=== PATIENT | female | born 1995 | race Hispanic/Latino ===

== ENCOUNTER 2018-08-24 20:06 | Emergency (ER) | payer SELFPAY ==
[2018-08-24 20:40] LABS: Absolute Lymphocytes (CBC) 2.6 K/uL (0.7-4.9); Basophils % 0.5 % (0-1.3); Eosinophils % 1.5 % (0-4.4); Hematocrit 41.3 % (36.0-45.0); Lymphocytes % 29.1 % (15.3-44.8); Monocytes % 8.2 % (3.3-12.3); RBC Red Blood Cell Count 4.64 M/uL (3.86-4.86)
[2018-08-24] MEDS ORDERED: NA CHLORIDE 0.9% 1,000 ML ONE (20:43)
[2018-08-24 21:03] LABS: ALT/SGPT 63 U/L (12-78); AST/SGOT 33 U/L (15-37); Albumin 4.1 g/dL (3.4-5.0); Alkaline Phosphatase 92 U/L (45-117); BUN Blood Urea Nitrogen 14 mg/dL (7-18); Bicarbonate 23 mmol/L (21-32); Bilirubin Direct 0.1 mg/dL (0-0.2); Bilirubin Total 0.3 mg/dL (0.2-1.0); Glucose Level 102 mg/dL (74-106); Lipase 122 U/L (73-393); Potassium 3.4 mmol/L (3.5-5.1); Protein, Total 8.1 g/dL (6.4-8.2); Sodium Level 139 mmol/L (136-145)
[2018-08-24 21:16] LABS: Urine Blood TRACE (NEG); Urine Glucose NEGATIVE (NEG); Urine Protein NEGATIVE (NEG); Urine pH 7.5 (5.0-7.0)
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
[2018-08-24] MEDS ORDERED: ONDANSETRON 4 MG/2 ML VIAL ONE (22:33)
[2018-08-24] MEDS ORDERED: POTASSIUM 25 MEQ EFFERV TAB ONE (22:34)
--- NOTE | 2018-08-25 08:16 | RAD REPORT ---
EXAM DESCRIPTION: [place] Single View08/24/2018 9:25 pm CLINICAL HISTORY: Chest pain COMPARISON: none FINDINGS: The lungs appear clear of acute infiltrate. The heart is normal size IMPRESSION: No acute abnormalities displayed
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
== END 2018-08-24 22:51 | disposition home or self-care (01) ==
LOC: ER 20:06
DX: S16.1XXA Strain of muscle, fascia and tendon at neck level, initial encounter (principal); E87.6 Hypokalemia; F41.9 Anxiety disorder, unspecified; N83.209 Unspecified ovarian cyst, unspecified side; V49.9XXA Car occupant (driver) (passenger) injured in unspecified traffic accident, initial encounter
CPT/HCPCS: 36415; 51702; 70450; 71045; 71260; 72125; 74177; 80048; 80076; 81003; 81025; 83690; 84703; 85025; 86850; 86900; 86901; 87086; 87088; 96361; 96374; 99285; J2405; J7030; Q9967

== ENCOUNTER 2022-06-08 06:08 | Emergency (ER) | payer OTHER ==
--- OUTSIDE RECORDS SUMMARY | 2022-06-08 06:11 | XMS REPORT | Continuity of Care Document ---
:1995 Author Organization [facility] t Address [address] [facility] [address] [place] [address] Care Team Providers Name Role Phone HAILEY FIERRO Primary Care Physician Unavailable Sebas Morgan Attending Clinician Unavailable TAWNY LANE Attending Clinician Unavailable FABIÁN GRAHAM Attending Clinician Unavailable Fabián Narayanan Attending Clinician Doctor Unassigned, [facility] Attending Clinician Unavailable Leif Hailey MOSELEY Attending Clinician [phone], [facility] Attending Clinician Unavailable Divya Anne MD Attending Clinician Nishant Damian Attending Clinician Unavailable Jarad Bhardwaj DO Attending Clinician DIVYA ANNE Attending Clinician Unavailable HAILEY FIERRO Attending Clinician Unavailable DARIO CHERY Attending Clinician Unavailable JANINE RUDD Attending Clinician Unavailable Janine An Attending Clinician JOELLEN BENNETT Attending Clinician Unavailable JANINE RUDD Admitting Clinician Unavailable Payers Payer Name Policy Type Policy Number Effective Date Expiration Date S gayathri [facility] 3 [id number] 2022 00:00:00 CIGNA II [id number] 2020 00:00:00 AETNA HMO GENERIC [id number] 2018 00:00:00 MEDICAID ALIEN PENDING 2019 PENDING 00:00:00 Problems Condition Condition Condition Status Onset Resolution Last Treating Co mments Source Name Details Category Date Date Treatment Clinician Date Amenorrhea Amenorrhea Disease Active U nivers 1-29 ity of 00:00: [place] [facility] Dyspareuni Dyspareuni Disease Active U nivers a in a in 05-11 ity of female female 00:00: [place] [facility] Vaginal Vaginal Disease Active Univers discharge discharge 05-11 ity of 00:00: [address] Cervical Cervical Disease Active Unive rs polyp polyp 09-04 ity of 00:00: [address] Branch Screening Screening Disease Active Uni vers for STD for STD 2-08 [place] of (sexually ([place] transmit[place] transmit[place] 00 [place] dical d disease) d disease) Br anch Depo-Prove Depo-Prove Disease Active U yusef ra ra 2-08 [place] shel[place] status 00 [facility] Overweight Overweight Disease Active U nivers 2-08 ity of 00:00: [place] [facility] Dysuria Dysuria Disease Active Univers 2-08 ity of 00:00: [place] 00 [facility] Skin tag: Skin tag: Disease Active Uni vers benign benign 6-25 ity of soft soft 00:00: [place] fibroma. fibroma. 00 Medica l Branch Obesity Obesity Disease Active Univers (BMI (BMI 6-22 ity of 30-39.9) 30-39.9) 00:00: [place] [address] Medical Branch BV BV Disease Active Univers (bacterial (bacterial 6-22 it y of vaginosis[place] vaginosis[place] [facility] General General Disease Active Univers counseling counseling 6-22 it y of for for 00:00: [place] prescripti prescripti 00 Me dical on of oral on of oral Br anch contracept contracept ira ira Allergies, Adverse Reactions, Alerts Allergy Allergy Status Severity Reaction(s) Onset Inactive Treating Comm ents Source Name Type Date Date Clinician NO KNOWN Drug Active Univers ALLERGIE Class ity of S [facility] Social History Social Habit Start Date Stop Date Quantity Comments Source Alcohol intake 2021-03-09 2021-03-09 0 /d [facility] 00:00:00 00:00:00 [facility] Branch Tobacco use and 2012-01-14 2012-01-14 Never used [facility] exposure 00:00:00 00:00:00 [facility] Sex Assigned At [birth year] [facility] 00:00:00 00:00:00 [facility] Branch Smoking Status Start Date Stop Date Source Never smoker [facility] Medications Ordered Filled Start Stop Current Ordering Indication Dosage Frequency Signature Comments Components Source Medication Medication Date Date Medication? Clinician (SIG) Name Name metFORMIN Yes [id number] 500mg Take 1 Univers 500 mg 2-04 tablet by ity of tablet 00:00: mouth 2 [place] [address] (two) Medical times Branch daily with meals. Immunizations Ordered Immunization Filled Immunization Date Status Commen ts Source Name Name Influenza Virus 2018-05-28 Completed Universit y of Vaccine Quad .5 mL 00:00:[facility] Meningococcal B, OMV 2015-09-03 Completed Univ ersity of 00:00:00 [facility] Meningococcal B, OMV 2015-08-03 Completed Univ ersity of 00:00:00 [facility] HPV 2010-12-18 Completed University of 00:00:00 [facility] HPV 2010-09-11 Completed University of 00:00:00 [facility] Varicella 2010-09-11 Completed University of (varivax)(chicken 00:00:00 [place] [facility] [place] pox) Branch HEPATITIS A 2010-05-15 Completed University of 00:00:00 [facility] HPV 2010-05-15 Completed University of 00:00:00 [facility] Meningococcal 2010-05-15 Completed University of Vaccine 00:00:00 [facility] TDAP 2010-05-15 Completed University of 00:00:00 [facility] Varicella 2010-05-15 Completed University of (varivax)(chicken 00:00:00 [facility] edical pox) Branch Polio (IPV/OPV) 2002-07-16 Completed Universit y of 00:00:00 [facility] DTP 2002-01-27 Completed University of 00:00:00 [facility] Polio (IPV/OPV) 2001-07-03 Completed Universit y of 00:00:00 [facility] Polio (IPV/OPV) 2001-03-17 Completed Universit y of 00:00:00 [facility] Polio (IPV/OPV) 2000-06-27 Completed Universit y of 00:00:00 [facility] Polio (IPV/OPV) 2000-03-28 Completed Universit y of 00:00:00 [facility] DTP 1999-07-01 Completed University of 00:00:00 [facility] Polio (IPV/OPV) 1999-07-01 Completed Universit y of 00:00:00 [facility] MMR 1998-11-12 Completed University of 00:00:00 [facility] DTP 1998-04-20 Completed University of 00:00:00 [facility] Polio (IPV/OPV) 1998-04-20 Completed Universit y of 00:00:00 [facility] 1998-02-20 Completed University of 00:00:00 [facility] Polio (IPV/OPV) 1998-02-20 Completed Universit y of 00:00:00 [facility] Polio (IPV/OPV) 1995 Completed Universit y of 00:00:00 [facility] 1995 Completed University of 00:00:00 [facility] Polio (IPV/OPV) 1995 Completed Universit y of 00:00:00 [facility] Procedures This patient has no known procedures. Encounters Start End Encounter Admission Attending Care Care Encounter Source Date/Time Date/Time Type Type Clinicians Facility Department ID 2022-05-[address] [id number] 10[facility]32:03 [facility] [address] [facility] 2022-04-[address] [facility] [id number] Common 13:05:02 [facility] [id number] [facility] 2022-04-22 2022-04-22 Outpatient PREZAS, PHUONG PHUONG [id number] Phuong 14:00:00 14:00:00 TAWNYMARCO Cancinoliza woodard 2021-06-28 2021-06-28 Outpatient R GLADYS [facility] [id number] Univers 09:00:00 09:00:00 ROSHUNDA ity o f [facility] 2021-06-28 2021-06-28 Outpatient R GLADYS [facility] [id number] Univers 09:00:00 09:00:00 ROSHUNDA ity o f [facility] 2021-05-21 2021-05-21 [facility] [id number] Univers 00:00:00 00:00:00 Rosdalenda R TOE LINING CLOSER [id number] ity of [facility] [id number] Luis M as MATERNAL [phone] [facility] ical & CHILD [address] [place] [address] 2021-03-15 2021-03-15 Telephone [facility] [id number] Univers 00:00:00 00:00:00 Rosdalenda R [employer]E LINING CLOSER [id number] ity of REGIONAL [id number] Luis M as MATERNAL [phone] Med ical & CHILD [address] [place] [address] 2021-03-09 2021-03-09 Outpatient Le GRAHAM [facility] [id number] Univers 09:30:00 10:55:17 ROSHUNDA ity o [facility] 2021-03-09 2021-03-09 Office [facility] [id number] Univers 09:30:00 10:55:17 Visit Rosnda R TOE LINING CLOSER [id number] ity of [facility] [id number] Luis M as MATERNAL [phone] [facility] [address] [place] [address] 2021-03-09 2021-03-09 Outpatient Le GRAHAM [facility] [id number] Univers 09:30:00 10:55:17 ROSHUNDA ity o [facility] 2021-03-09 2021-03-09 Orders Doctor NISHANT [id number] Univers 00:00:00 00:00:00 Only Unassigned, CASSANDRA [id number] [facility] [id number] Luis M as [phone] [address] 2021-03-06 2021-03-06 Telephone Leif [facility] [[email or web address]] [id number] Univers 00:00:00 00:00:00 Hailey Mcghee TO[employer]ING CLOSER [id number] ity of [facility] [id number] Luis M as MATERNAL [phone] Med ical & CHILD [address] [place] [address] 2020-11-27 2020-11-27 Pattern Chain Maker Supervisor 2, Adc Lab [facility] [[email or web address]] [id number] Univers 15:30:34 15:45:34 Visit Prasanna Annen [place] [id number] ity of [id number] [place] [phone] Oh dical [address] 2020-11-27 2020-11-27 Outpatient R [facility] [id number] Univers 15:15:00 15:15:00 ity of [facility] 2020-11-27 2020-11-27 Outpatient R [facility] [id number] Univers 14:00:00 14:00:00 ity of [facility] 2020-11-27 2020-11-27 Telephone Prasanna Annen [facility] [id number] Univers 00:00:00 00:00:00 [place] [id number] [place] of [id number] [place] [facility] [phone] [address] 2020-11-27 2020-11-27 Telephone Prasanna Annen [facility] [id number] Univers 00:00:00 00:00:00 [place] [id number] [place] y of [place] [id number] [place] [facility] [id number] [address] 2020-05-08 2020-05-08 Outpatient DEMETRI Padilla ADMI [id number] [facility] 13:00:00 13:00:00 Nishant 99 [facility] 2020-05-01 2020-05-01 Patient Benton [facility] [[email or web address]] [id number] Univers 00:00:00 00:00:00 Outreach Jarad PRIMARY [id number] [facility] [id number] [place] [facility] [phone] Oh dical [address] [place] [address] 2020-03-29 2020-03-29 Outpatient R RACHEL DIVYA [facility] [id number] Univers 11:00:00 11:00:00 ity [facility] 2020-03-22 2020-03-22 Outpatient R RACHEL DIVYA [facility] [id number] Univers 15:00:00 15:00:[facility] 2019-08-03 2019-08-03 Outpatient R AKINJOLIE [facility] [id number] Univers 08:15:00 08:15:00 HAILEY guidry o f [facility] 2019-07-26 2019-07-26 Outpatient R ADUM [facility] [id number] Univers 10:00:00 10:00:00 DARIO guidry [facility] 2019-07-21 2019-07-21 Telephone [facility] [id number] [id number] Univers 00:00:00 00:00:00 Hailey Mchgee [employer]E LINING CLOSER [id number] ity General acute hospital [id number] Luis M as MATERNAL [phone] Med ical & CHILD [address] [place] [address] 2019-07-20 2019-07-20 Emergency X YULIANA [facility] [[email or web address]] ERT [id number] Univers 13:51:01 17:56:00 JANINE guidry [facility] 2019-07-20 2019-07-20 Emergency [facility] [id number] Univers 13:51:01 17:56:00 Janine [place] [id number] [facility] [id number] [place] [id number] [address] 2019-07-20 2019-07-20 Telephone [facility] 1.2.840.114 [id number] Univers 00:00:00 00:00:00 Hailey Mcghee TOE LINING CLOSER [id number] ity of [facility] [id number] Luis M as MATERNAL [phone] Med ical & CHILD [address] [place] [address] 2019-07-20 2019-07-20 Orders Doctor NISHANT [id number] Univers 00:00:00 00:00:00 Only Unassigned, CASSANDRA [id number] [id number] Luis M as [phone] [facility] 009 Branch 2019-07-13 2019-07-13 Outpatient Le FIERRO [facility] [id number] Univers 15:00:00 15:00:00 HAILEY maria f [facility] 2018-12-31 2018-12-31 Outpatient Le BENNETT [facility] [id number] Univers 14:00:00 15:42:30 JOELLEN guidry [facility] Results This patient has no known results.
--- NOTE | 2022-06-08 06:35 | EDPHYS ---
Physician Documentation [facility] Name: Thor Rome Age: 26 yrs Sex: Female : 1995 Arrival Date: 06/08/2022 Time: 06:08 Bed DX3 Private MD: ED Physician Jose Hubbard HPI: 06/08 06:25 This 26 yrs old Female presents to ER via Unassigned with complaints of sp4 Drainage From Ear, Ear Pain. 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 oxacillin did not help and patient presents with worsening left earache and drainage from left ear, right earache and sore throat. Patient denies fever, denied possibility of being . Historical: - Allergies: 06:29 No Known Allergies; kl - Home Meds: 06:29 Amoxicillin Oral [Active]; kl - PMHx: 06:29 Anxiety; kl - PSHx: 06:29 None; kl - Immunization history:: Adult Immunizations not up to date. - Social history:: Smoking status: Patient denies any tobacco usage or history of. - Family history:: not pertinent. ROS: 06:29 Constitutional: Negative for fever, chills, and weight loss, Eyes: Negative for injury, sp4 pain, redness, and discharge, ENT: Negative for injury, positive for bilateral ear pain positive for drainage from the left ear, positive for sore throat Neck: Negative for injury, pain, and swelling, Cardiovascular: Negative for chest pain, palpitations, and edema, Respiratory: Negative for shortness of breath, cough, wheezing, and pleuritic chest pain, Abdomen/GI: Negative for abdominal pain, nausea, vomiting, diarrhea, and constipation, Back: Negative for injury and pain, : Negative for injury, bleeding, discharge, and swelling, MS/Extremity: Negative for injury and deformity, Skin: Negative for injury, rash, and discoloration, Neuro: Negative for headache, weakness, numbness, tingling, and seizure, Psych: Negative for depression, anxiety, Allergy/Immunology: Negative for hives, rash, and allergies Endocrine: Negative for neck swelling, polydipsia, polyuria, polyphagia, and weight changes Hematologic/Lymphatic: Negative for swollen nodes, abnormal bleeding, and unusual bruising Exam: 06:29 Constitutional: This is a well developed, well nourished patient who is awake, alert, sp4 and in no acute distress. Head/Face: Normocephalic, atraumatic. Eyes: Pupils equal round and reactive to light, extra-ocular motions intact. Lids and lashes normal. Conjunctiva and sclera are not injected. Cornea within normal limits. Periorbital areas with no swelling, redness, or edema. ENT: Nares patent. No nasal discharge, no septal abnormalities noted. Left ear canal inflamed and infected with purulent debris in the left ear canal. Right ear canal is patent right tympanic membrane is erythematous and opacified. Bilateral pharyngeal and tonsillar erythema by exam. Airways patent Neck: Trachea midline, no thyromegaly or masses palpated, and no cervical lymphadenopathy. Supple, full range of motion without nuchal rigidity, or vertebral point tenderness. No Meningismus. Chest/axilla: Normal chest wall appearance and motion. Nontender with no deformity. No lesions are appreciated. Cardiovascular: Regular rate and rhythm with a normal S1 and S2. No gallops, murmurs, or rubs. Normal PMI, no JVD. No pulse deficits. Respiratory: Lungs have equal breath sounds bilaterally, clear to auscultation and percussion. No rales, rhonchi or wheezes noted. No increased work of breathing, no retractions or nasal flaring. Abdomen/GI: Soft, non-tender, with normal bowel sounds. No distension or tympany. No guarding or rebound. No evidence of tenderness throughout. Back: No spinal tenderness. No costovertebral tenderness. Skin: Warm, dry with normal turgor. Normal color with no rashes, no lesions, and no evidence of cellulitis. MS/ Extremity: Pulses equal, no cyanosis. Neurovascular intact. Full, normal range of motion. Neuro: Awake and alert, GCS 15, oriented to person, place, time, and situation. Cranial nerves II-XII grossly intact. Motor strength 5/5 in all extremities. Sensory grossly intact. Psych: Awake, alert, with orientation to person, place and time. Behavior, mood, and affect are within normal limits Vital Signs: 06:27 BP 135 / 95; Pulse 97; Resp 18; Temp 98.9(O); Pulse Ox 97% on R/A; Weight 87.09 kg (R); kl Height 4 ft. 11 in. ; Pain 11/18; 06:27 Body Mass Index 38.78 (87.09 kg, 149.86 cm) kl 06:27 Pain Scale: Adult kl MDM: 06:29 Differential diagnosis: otitis media, otitis externa, ruptured TM, foreign body, acute sp4 otalgia, cerumen impaction, barotrauma , serotympanum. Data reviewed: vital signs, nurses notes. ED course: Patient has signs of left otitis externa with left ear canal infection and swelling and closure of left ear canal Left tympanic membrane not visualized by examination, patient warrants a Rocephin injection, and oral Keflex for the next 10 days. Advised to discontinue amoxicillin.. 06:35 Patient medically screened. sp4 Administered Medications: 06:44 Drug: Promethazine PO 25 mg Route: PO; kl 06:44 Drug: [place] PO 10 mg-325 mg 1 tabs Route: PO; kl 06:44 Drug: Ibuprofen PO 800 mg Route: PO; kl 06:44 Drug: Rocephin (cefTRIAXone) IM 1 grams Route: IM; Site: left ventrogluteal; kl Disposition Summary: 06/08/22 06:35 Discharge Ordered Location: Home sp4 Problem: new sp4 Symptoms: have improved sp4 Condition: Stable sp4 Diagnosis - Left otitis externa, right otitis media, acute pharyngitis, acute tonsillitis. sp4 Followup: sp4 - With: Private Physician - When: 7 - 10 days - Reason: Re-evaluation by your physician Discharge Instructions: - Discharge Summary Sheet sp4 - Otitis Externa, [id number] sp4 Forms: - Thank You Letter sp4 - Antibiotic Education sp4 Prescriptions: - Cephalexin 500 mg Oral Capsule - take 1 capsule by ORAL route every 12 hours for 10 days; 20 capsule; Refills: sp4 0, Product Selection Permitted - Ibuprofen 800 mg Oral Tablet - take 1 tablet by ORAL route every 8 hours As needed take with food; 30 tablet; sp4 Refills: 0, Product Selection Permitted Signatures: Cheri Arnold RN RN kl Potepalov, Sergey, MD MD sp4
--- NOTE | 2022-06-08 06:35 | ER ---
Nurse's Notes [facility] Name: Thor Rome Age: 26 yrs Sex: Female : 1995 Arrival Date: 06/08/2022 Time: 06:08 Bed DX3 Private MD: Diagnosis: Left otitis externa, right otitis media, acute pharyngitis, acute tonsillitis. Presentation: 06/08 06:27 Chief complaint: Patient states: left ear pain since Thursday prescribed Amoxil without kl improvement. Coronavirus screen: Vaccine status:. Ebola Screen: Patient negative for fever greater than or equal to 101.5 degrees Fahrenheit, and additional compatible Ebola Virus Disease symptoms. Initial Sepsis Screen: Does the patient meet any 2 criteria? No. Patient's initial sepsis screen is negative. Does the patient have a suspected source of infection? No. Patient's initial sepsis screen is negative. Risk Assessment: Do you want to hurt yourself or someone else? Patient reports no desire to harm self or others. 06:27 Method Of Arrival: Ambulatory 06:27 Acuity: BETITO 4 kl Triage Assessment: 06:30 General: Appears uncomfortable, Behavior is cooperative. Pain: Complains of pain in kl left ear. EENT: Reports pain in left ear drainage from left ear. Neuro: No deficits noted. Cardiovascular: No deficits noted. Respiratory: No deficits noted. GI: No deficits noted. No signs and/or symptoms were reported involving the gastrointestinal system. : No deficits noted. No signs and/or symptoms were reported regarding the genitourinary system. Derm: No deficits noted. No signs and/or symptoms reported regarding the dermatologic system. Musculoskeletal: No deficits noted. No signs and/or symptoms reported regarding the musculoskeletal system. Historical: - Allergies: 06:29 No Known Allergies; kl - Home Meds: 06:29 Amoxicillin Oral [Active]; kl - PMHx: 06:29 Anxiety; kl - PSHx: 06:29 None; kl - Immunization history:: Adult Immunizations not up to date. - Social history:: Smoking status: Patient denies any tobacco usage or history of. - Family history:: not pertinent. Screenin:31 [facility] ED Fall Risk Assessment (Adult) History of falling in the last 3 months, kl including since admission No falls in past 3 months (0 pts) Confusion or Disorientation No (0 pts) Intoxicated or Sedated No (0 pts) Impaired Gait No (0 pts) Mobility Assist Device Used No (0 pt) Altered Elimination No (0 pt) Score/Fall Risk Level 0 - 2 = Low Risk Oriented to surroundings, Maintained a safe environment. Abuse screen: Denies threats or abuse. Nutritional screening: No deficits noted. Tuberculosis screening: No symptoms or risk factors identified. Assessment: 06:31 Reassessment: see triage assessment. Vital Signs: 06:27 BP 135 / 95; Pulse 97; Resp 18; Temp 98.9(O); Pulse Ox 97% on R/A; Weight 87.09 kg (R); kl Height 4 ft. 11 in. ; Pain 10/10; 06:27 Body Mass Index 38.78 (87.09 kg, 149.86 cm) 06:27 Pain Scale: Adult ED Course: 06:13 Patient arrived in ED. [id number] 06:25 Jose Hubbard MD is Attending Physician. sp4 06:29 Triage completed. 06:31 Patient has correct armband on for positive identification. Call light in reach. kl 06:32 No provider procedures requiring assistance completed. Patient did not have IV access during this emergency room visit. Administered Medications: 06:44 Drug: Promethazine PO 25 mg Route: PO; kl 06:44 Drug: [place] PO 10 mg-325 mg 1 tabs Route: PO; kl 06:44 Drug: Ibuprofen PO 800 mg Route: PO; kl 06:44 Drug: Rocephin (cefTRIAXone) IM 1 grams Route: IM; Site: left ventrogluteal; Medication: 06:31 VIS not applicable for this client. Outcome: 06:35 Discharge ordered by . sp4 06:51 Discharged to home ambulatory. 06:51 Condition: stable 06:51 Discharge instructions given to patient, Instructed on discharge instructions, follow up and referral plans. medication usage, Demonstrated understanding of instructions, follow-up care, medications, Prescriptions given X 2. 06:53 Patient left the ED. Signatures: Cheri Arnold RN RN Leyda Diego [email or web address] Jose Hubbard MD MD sp4
[2022-06-08] MEDS ORDERED: PROMETHAZINE 25 MG TABLET ONE (06:41)
[2022-06-08] MEDS ORDERED: HYDROCODONE/APAP 10/325 TAB ONE (06:41)
[2022-06-08] MEDS ORDERED: IBUPROFEN 400 MG TAB ONE (06:41)
[2022-06-08] MEDS ORDERED: CEFTRIAXONE 1000 MG/VIAL ONE (06:42)
[2022-06-08] MEDS ORDERED: WATER FOR INJ,STERILE 10 ML ONE (06:42)
[2022-06-08 06:57] VITALS: BP 135/95; TEMP 98.9; O2SAT 97
== END 2022-06-08 06:53 | disposition home or self-care (01) ==
LOC: ER 06:08
DX: H60.92 Unspecified otitis externa, left ear (principal); H66.91 Otitis media, unspecified, right ear; J03.90 Acute tonsillitis, unspecified
CPT/HCPCS: Q0169; J0696; 96372; 99284

== ENCOUNTER 2022-12-12 14:15 | Emergency (ER) | payer OTHER ==
--- OUTSIDE RECORDS SUMMARY | 2022-12-12 14:24 | XMS REPORT | Continuity of Care Document ---
:[address] [facility] t Address [address] [place] [address] Care Team Providers Name Role Phone Hailey Blas Primary Care Physician Sebas Morgan Attending Clinician Unavailable GULSHAN MILLAN Attending Clinician Unavailable GULSHAN MILLAN Attending Clinician Unavailable [email or web address] Attending Clinician Unavailable Vahid Arita MD Attending Clinician [phone] Doctor Unassigned, Halls Attending Clinician Unavailable TAWNY LANE Attending Clinician Unavailable FABIÁN GRAHAM Attending Clinician Unavailable Fabián Narayanan Attending Clinician Hailey Blas Attending Clinician [phone], [facility] Attending Clinician Unavailable Divya Anne MD Attending Clinician Nishant Damian Attending Clinician Unavailable Jarad Bhardwaj DO Attending Clinician DIVYA ANNE Attending Clinician Unavailable HAILEY FIERRO Attending Clinician Unavailable DARIO CHERY Attending Clinician Unavailable JANINE RUDD Attending Clinician Unavailable Janine An Attending Clinician JOELLEN BENNETT Attending Clinician Unavailable [email or web address] Admitting Clinician Unavailable JANINE RUDD Admitting Clinician Unavailable Payers Payer Name Policy Type Policy Number Effective Date Expiration Date S gayathri [facility] [id number] 2022 PPO/POS II 00:00:00 [facility] 3 [id number] 2022 00:00:00 CIGNA II [id number] 2020 00:00:00 [employer]ET[employer] HMO GENERIC [id number] 2018 00:00:00 MEDICAID [place] PENDING 2019 PENDING 00:00:00 Problems Condition Condition Condition Status Onset Resolution Last Treating Co mments Source Name Details Category Date Date Treatment Clinician Date ASCUS with ASCUS with Disease Active 2022-0 U nivers positive positive 8-31 [place] 00 [facility] cervical cervical Branch Amenorrhea Amenorrhea Disease Active 2021-0 U nivers 1-29 ity of 00:00: [place] [facility] Dyspareuni Dyspareuni Disease Active 2019-0 U nivers a in a in 4 ity of female female 00:00: [place] [facility] Vaginal Vaginal Disease Active 2019-0 Univers discharge discharge 4- ity of 00:00: [place] [facility] Cervical Cervical Disease Active 2017- Unive rs polyp polyp 7-27 ity of 00:00: [address] Encounter Encounter Disease Active 2017- Uni vers for for 2-08 [place] 00 Medical management management Br anch , , unspecifie unspecifie d type d type Depo-Prove Depo-Prove Disease Active 2018-0 U nivers ra ra 2-08 [place] of contracept [place]pt [place] shel[place] status 00 Sd dical Branch Overweight Overweight Disease Active 2018-0 U nivers 2-08 ity of 00:00: [address] Dysuria Dysuria Disease Active Univers 2-08 ity of 00:00: [address] Skin tag: Skin tag: Disease Active Uni vers benign benign 6-25 ity of soft soft 00:00: [place] fibroma. fibroma. 00 Medica l Branch Obesity Obesity Disease Active Univers (BMI (BMI 6-22 ity of 30-39.9) 30-39.9) 00:00: [address] BV BV Disease Active Univers (bacterial (bacterial 6-22 it y of vaginosis) vaginosis[place] [facility] General General Disease Active Univers counseling counseling - it y of for for 00:00: [place] prescripti prescripti 00 Me dical on of oral on of oral Br anch contracept contracept ira ira Allergies, Adverse Reactions, Alerts Allergy Allergy Status Severity Reaction(s) Onset Inactive Treating Comm ents Source Name Type Date Date Clinician NO KNOWN Drug Active Univers ALLERGIE Class ity of S [facility] Social History Social Habit Start Date Stop Date Quantity Comments Source Gender identity Universit y of [facility] Sexual orientation Univer [facility] Exposure to 2021-02-07 2021-03-09 Not sure [facility] SARS-CoV-2 (event) 00:00:00 09:27:00 [facility] History of Social 2021-03-09 2021-03-09 Univers ity of function 00:00:00 00:00:00 [facility] Alcohol intake 2020-03-22 2020-03-22 0 /d University of 00:00:00 00:00:00 [facility] Tobacco use and 2012-01-14 2012-01-14 Smokeless Universit y of exposure 00:00:00 00:00:00 tobacco non-user [facility] dical Branch Sex Assigned At [address] [facility] 00:[facility] Smoking Status Start Date Stop Date Source Never smoked tobacco [facility] Medications Ordered Filled Start Stop Current Ordering Indication Dosage Frequency Signature Comments Components Source Medication Medication Date Date Medication? Clinician (SIG) Name Name semaglutide Yes .25mg inject Uni vers , weight 8-04 0.25 mg ity of loss, 16:52: under the [place] (VY) 29 skin Medical 0.25 mg/0.5 weekly. Branc h mL PnIj SC injection semaglutide 2022-0 Yes .25mg inject Uni vers , weight 8-04 0.25 mg ity of loss, 16:52: under the [place] () 29 skin Medical 0.25 mg/0.5 weekly. Branc h mL PnIj SC injection semaglutide 2022-0 Yes .25mg inject Uni vers , weight 8-04 0.25 mg ity of loss, 16:52: under the [place] (Y) 29 skin Medical 0.25 mg/0.5 weekly. Branc h mL PnIj SC injection semaglutide 2022-0 Yes .25mg inject Uni vers , weight 8-04 0.25 mg ity of loss, 16:52: under the [place] () 29 skin Medical 0.25 mg/0.5 weekly. Branc h mL PnIj SC injection metFORMIN 2021-0 Yes [id number] 500mg Take 1 Univers 500 mg 2-04 tablet by ity of tablet 00:00: mouth (two) Medical times Branch daily with meals. metFORMIN 2021-0 Yes [id number] 500mg Take 1 Univers 500 mg 2-04 tablet by ity of tablet 00:00: mouth (two) Medical times Branch daily with meals. metFORMIN 2021-0 Yes [id number] 500mg Take 1 Univers 500 mg 2-04 tablet by ity of tablet 00:00: mouth (two) Medical times Branch daily with meals. metFORMIN 2021-0 Yes [id number] 500mg Take 1 Univers 500 mg 2-04 tablet by ity of tablet 00:00: mouth (two) Medical times Branch daily with meals. metFORMIN 2021-0 Yes [id number] 500mg Take 1 Univers 500 mg 2-04 tablet by ity of tablet 00:00: mouth (two) Medical times Branch daily with meals. metFORMIN 2021-0 Yes [id number] 500mg Take 1 Univers 500 mg 2-04 tablet by ity of tablet 00:00: mouth (two) Medical times Branch daily with meals. Immunizations Ordered Immunization Filled Date Status Comments Sour ce Name Immunization Name HPV9 2022-10-09 Completed University of 00:00:00 [facility] Branch HPV9 2022-10-09 Completed University of 00:00:00 [facility] Influenza Virus 2018-05-28 Completed Universit y of Vaccine [place] .5 mL 00:00:00 [place] [facility] 6+ MO Branch (FLUZONE/FLULAVAL/FL UARIX) Influenza Virus 2018-05-28 Completed Universit y of Vaccine [place] .5 mL 00:00:00 [place] [facility] IM 6+ MO Branch (FLUZONE/FLULAVAL/FL UARIX) Influenza Virus 2018-05-28 Completed Universit y of Vaccine [place] .5 mL 00:00:00 [place] [facility] IM 6+ MO Branch Influenza Virus 2018-05-28 Completed Universit y of Vaccine [place] .5 mL 00:00:00 [place] [facility] 6+ MO Branch Influenza Virus 2018-05-28 Completed Universit y of Vaccine [place] .5 mL 00:00:00 [place] [facility] 6+ MO Branch Influenza Virus 2018-05-28 Completed Universit y of Vaccine [place] .5 mL 00:00:00 [facility] 6+ MO Branch Meningococcal B, OMV 2015-09-03 Completed Univ ersity of 00:00:00 [place] [facility] Meningococcal B, OMV 2015-09-03 Completed Univ ersity of 00:00:00 [place] [facility] Meningococcal B, OMV 2015-09-03 Completed Univ ersity of 00:00:00 [facility] Branch Meningococcal B, OMV 2015-09-03 Completed Univ ersity of 00:00:00 [facility] Branch Meningococcal B, OMV 2015-09-03 Completed Univ ersity of 00:00:00 [place] [facility] Meningococcal B, OMV 2015-09-03 Completed Univ ersity of 00:00:00 [facility] Branch Meningococcal B, OMV 2015-08-03 Completed Univ ersity of 00:00:00 [facility] Branch Meningococcal B, OMV 2015-08-03 Completed Univ ersity of 00:00:00 [facility] Branch Meningococcal B, OMV 2015-08-03 Completed Univ ersity of 00:00:00 [facility] Branch Meningococcal B, OMV 2015-08-03 Completed Univ ersity of 00:00:00 [facility] Branch Meningococcal B, OMV 2015-08-03 Completed Univ ersity of 00:00:00 [facility] Meningococcal B, OMV 2015-08-03 Completed Univ ersity of 00:00:00 [facility] HPV 2010-12-18 Completed University of 00:00:00 [facility] HPV 2010-12-18 Completed University of 00:00:00 [facility] HPV 2010-12-18 Completed University of 00:00:00 [facility] HPV 2010-12-18 Completed University of 00:00:00 [facility] HPV 2010-12-18 Completed University of 00:00:00 [facility] HPV 2010-12-18 Completed University of 00:00:00 [facility] HPV 2010-09-11 Completed University of 00:00:00 [facility] Varicella 2010-09-11 Completed University of (varivax)(chicken 00:00:00 [place] M edical pox) Branch HPV 2010-09-11 Completed University of 00:00:00 [facility] Varicella 2010-09-11 Completed University of (varivax)(chicken 00:00:00 [place] [facility] pox) Branch HPV 2010-09-11 Completed University of 00:00:00 [facility] Varicella 2010-09-11 Completed University of (varivax)(chicken 00:00:00 [place] [facility] pox) Branch HPV 2010-09-11 Completed University of 00:00:00 [facility] Varicella 2010-09-11 Completed University of (varivax)(chicken 00:00:00 [place] M [facility]ical pox) Branch HPV 2010-09-11 Completed University of 00:00:00 [facility] Varicella 2010-09-11 Completed University of (varivax)(chicken 00:00:00 [place] [facility]ical pox) Branch HPV 2010-09-11 Completed University of 00:00:00 [facility] Varicella 2010-09-11 Completed University of (varivax)(chicken 00:00:00 [place] [facility] [place] pox) Branch HEPATITIS A 2010-05-15 Completed University of 00:00:00 [facility] HPV 2010-05-15 Completed University of 00:00:00 [facility] Meningococcal 2010-05-15 Completed University of Vaccine 00:00:00 [facility] TDAP 2010-05-15 Completed University of 00:00:00 [facility] Varicella 2010-05-15 Completed University of (varivax)(chicken 00:00:00 [place] [facility]ical pox) Branch Meningococcal 2010-05-15 Completed University of Polysaccharide 00:00:00 [place] Medi melita (groups A, C, Y and Branc h W-135) conjugate vaccine (MCV4P) HEPATITIS A 2010-05-15 Completed University of 00:00:00 [facility] HPV 2010-05-15 Completed University of 00:00:00 [facility] Meningococcal 2010-05-15 Completed University of Vaccine 00:00:00 [facility] TDAP 2010-05-15 Completed University of 00:00:00 [facility] Varicella 2010-05-15 Completed University of (varivax)(chicken 00:00:00 [place] M [facility]ical pox) Branch Meningococcal 2010-05-15 Completed University of Polysaccharide 00:00:00 [facility] melita (groups A, C, Y and Branc h W-135) conjugate vaccine (MCV4P) HEPATITIS A 2010-05-15 Completed University of 00:00:00 [facility] HPV 2010-05-15 Completed University of 00:00:00 [facility] Meningococcal 2010-05-15 Completed University of Vaccine 00:00:00 [facility] TDAP 2010-05-15 Completed University of 00:00:00 [facility] Varicella 2010-05-15 Completed University of (varivax)(chicken 00:00:00 [place] [facility]ical pox) Branch HEPATITIS A 2010-05-15 Completed University of 00:00:00 [facility] HPV 2010-05-15 Completed University of 00:00:00 [facility] Meningococcal 2010-05-15 Completed University of Vaccine 00:00:00 [facility] TDAP 2010-05-15 Completed University of 00:00:00 [facility] Varicella 2010-05-15 Completed University of (varivax)(chicken 00:00:00 [place] [facility] [place]ical pox) Branch HEPATITIS A 2010-05-15 Completed University of 00:00:00 [facility] HPV 2010-05-15 Completed University of 00:00:00 [facility] Meningococcal 2010-05-15 Completed University of Vaccine 00:00:00 [facility] TDAP 2010-05-15 Completed University of 00:00:00 [facility] Varicella 2010-05-15 Completed University of (varivax)(chicken 00:00:00 [place] [facility]ical pox) Branch HEPATITIS A 2010-05-15 Completed University of 00:00:00 [facility] HPV 2010-05-15 Completed University of 00:00:00 [facility] Meningococcal 2010-05-15 Completed University of Vaccine 00:00:00 [facility] TDAP 2010-05-15 Completed University of 00:00:00 [facility] Varicella 2010-05-15 Completed University of (varivax)(chicken 00:00:00 [place] M edical pox) Branch Polio (IPV/OPV) 2002-07-16 Completed Universit y of 00:00:00 [facility] IPV 2002-07-16 Completed University of 00:00:00 [facility] Branch Polio (IPV/OPV) 2002-07-16 Completed Universit y of 00:00:00 [facility] IPV 2002-07-16 Completed University of 00:00:00 [facility] Branch Polio (IPV/OPV) 2002-07-16 Completed Universit y of 00:00:00 [facility] Polio (IPV/OPV) 2002-07-16 Completed Universit y of 00:00:00 [facility] Polio (IPV/OPV) 2002-07-16 Completed Universit y of 00:00:00 [facility] Polio (IPV/OPV) 2002-07-16 Completed Universit y of 00:00:00 [facility] DTP 2002-01-27 Completed University of 00:00:00 [facility] DTP 2002-01-27 Completed University of 00:00:00 [facility] DTP 2002-01-27 Completed University of 00:00:00 [facility] DTP 2002-01-27 Completed University of 00:00:00 [facility] DTP 2002-01-27 Completed University of 00:00:00 [facility] DTP 2002-01-27 Completed University of 00:00:00 [facility] Polio (IPV/OPV) 2001-07-03 Completed Universit y of 00:00:00 [facility] IPV 2001-07-03 Completed University of 00:00:00 [facility] Branch Polio (IPV/OPV) 2001-07-03 Completed Universit y of 00:00:00 [facility] IPV 2001-07-03 Completed University of 00:00:00 [facility] Polio (IPV/OPV) 2001-07-03 Completed Universit y of 00:00:00 [facility] Branch Polio (IPV/OPV) 2001-07-03 Completed Universit y of 00:00:00 [place] [facility] Polio (IPV/OPV) 2001-07-03 Completed Universit y of 00:00:00 [place] [facility] Polio (IPV/OPV) 2001-07-03 Completed Universit y of 00:00:00 [place] [facility] Polio (IPV/OPV) 2001-03-17 Completed Universit y of 00:00:00 [place] [facility] IPV 2001-03-17 Completed University of 00:00:00 [place] [facility] Polio (IPV/OPV) 2001-03-17 Completed Universit y of 00:00:00 [place] [facility] IPV 2001-03-17 Completed University of 00:00:00 [place] [facility] Polio (IPV/OPV) 2001-03-17 Completed Universit y of 00:00:00 [place] [facility] Polio (IPV/OPV) 2001-03-17 Completed Universit y of 00:00:00 [place] [facility] Polio (IPV/OPV) 2001-03-17 Completed Universit y of 00:00:00 [place] [facility] Polio (IPV/OPV) 2001-03-17 Completed Universit y of 00:00:00 [place] [facility] Polio (IPV/OPV) 2000-06-27 Completed Universit y of 00:00:00 [place] [facility] IPV 2000-06-27 Completed University of 00:00:00 [place] [facility] Polio (IPV/OPV) 2000-06-27 Completed Universit y of 00:00:00 [place] [facility] IPV 2000-06-27 Completed University of 00:00:00 [place] [facility] Polio (IPV/OPV) 2000-06-27 Completed Universit y of 00:00:00 [place] [facility] Polio (IPV/OPV) 2000-06-27 Completed Universit y of 00:00:00 [place] [facility] Polio (IPV/OPV) 2000-06-27 Completed Universit y of 00:00:00 [place] [facility] Polio (IPV/OPV) 2000-06-27 Completed Universit y of 00:00:00 [place] [facility] Polio (IPV/OPV) 2000-03-28 Completed Universit y of 00:00:00 [place] [facility] IPV 2000-03-28 Completed University of 00:00:00 [place] [facility] Polio (IPV/OPV) 2000-03-28 Completed Universit y of 00:00:00 [place] [facility] IPV 2000-03-28 Completed University of 00:00:00 [place] [facility] Polio (IPV/OPV) 2000-03-28 Completed Universit y of 00:00:00 [place] [facility] Polio (IPV/OPV) 2000-03-28 Completed Universit y of 00:00:00 [place] [facility] Polio (IPV/OPV) 2000-03-28 Completed Universit y of 00:00:00 [place] [facility] Polio (IPV/OPV) 2000-03-28 Completed Universit y of 00:00:00 [facility] Branch DTP 1999-07-01 Completed University of 00:00:00 [place] [facility] Polio (IPV/OPV) 1999-07-01 Completed Universit y of 00:00:00 [place] [facility] IPV 1999-07-01 Completed University of 00:00:00 [facility] Branch DTP 1999-07-01 Completed University of 00:00:00 [place] [facility] Polio (IPV/OPV) 1999-07-01 Completed Universit y of 00:00:00 [place] [facility] IPV 1999-07-01 Completed University of 00:00:00 [facility] Branch DTP 1999-07-01 Completed University of 00:00:00 [place] [facility] Polio (IPV/OPV) 1999-07-01 Completed Universit y of 00:00:00 [facility] Branch DTP 1999-07-01 Completed University of 00:00:00 [place] [facility] Polio (IPV/OPV) 1999-07-01 Completed Universit y of 00:00:00 [facility] Branch DTP 1999-07-01 Completed University of 00:00:00 [place] [facility] Polio (IPV/OPV) 1999-07-01 Completed Universit y of 00:00:00 [facility] Branch DTP 1999-07-01 Completed University of 00:00:00 [place] [facility] Polio (IPV/OPV) 1999-07-01 Completed Universit y of 00:00:00 [facility] Branch MMR 1998-11-12 Completed University of 00:00:00 [facility] Branch MMR 1998-11-12 Completed University of 00:00:00 [facility] Branch MMR 1998-11-12 Completed University of 00:00:00 [place] [facility] MMR 1998-11-12 Completed University of 00:00:00 [place] [facility] MMR 1998-11-12 Completed University of 00:00:00 [facility] MMR 1998-11-12 Completed University of 00:00:00 [facility] Branch DTP 1998-04-20 Completed University of 00:00:00 [facility] Branch Polio (IPV/OPV) 1998-04-20 Completed Universit y of 00:00:00 [facility] Branch IPV 1998-04-20 Completed University of 00:00:00 [facility] Branch DTP 1998-04-20 Completed University of 00:00:00 [facility] Branch Polio (IPV/OPV) 1998-04-20 Completed Universit y of 00:00:00 [facility] Branch IPV 1998-04-20 Completed University of 00:00:00 [facility] Branch DTP 1998-04-20 Completed University of 00:00:00 [facility] Branch Polio (IPV/OPV) 1998-04-20 Completed Universit y of 00:00:00 [facility] DTP 1998-04-20 Completed University of 00:00:00 [facility] Branch Polio (IPV/OPV) 1998-04-20 Completed Universit y of 00:00:00 [facility] Branch DTP 1998-04-20 Completed University of 00:00:00 [facility] Branch Polio (IPV/OPV) 1998-04-20 Completed Universit y of 00:00:00 [facility] DTP 1998-04-20 Completed University of 00:00:00 [facility] Branch Polio (IPV/OPV) 1998-04-20 Completed Universit y of 00:00:00 [facility] DTP 1998-02-20 Completed University of 00:00:00 [facility] Branch Polio (IPV/OPV) 1998-02-20 Completed Universit y of 00:00:00 [facility] Branch IPV 1998-02-20 Completed University of 00:00:00 [facility] Branch DTP 1998-02-20 Completed University of 00:00:00 [facility] Branch Polio (IPV/OPV) 1998-02-20 Completed Universit y of 00:00:00 [facility] Branch IPV 1998-02-20 Completed University of 00:00:00 [facility] Branch DTP 1998-02-20 Completed University of 00:00:00 [facility] Branch Polio (IPV/OPV) 1998-02-20 Completed Universit y of 00:00:00 [facility] Branch DTP 1998-02-20 Completed University of 00:00:00 [facility] Branch Polio (IPV/OPV) 1998-02-20 Completed Universit y of 00:00:00 [facility] Branch DTP 1998-02-20 Completed University of 00:00:00 [place] [facility] Polio (IPV/OPV) 1998-02-20 Completed Universit y of 00:00:00 [facility] Branch DTP 1998-02-20 Completed University of 00:00:00 [place] [facility] Polio (IPV/OPV) 1998-02-20 Completed Universit y of 00:00:00 [facility] DTP 1997 Completed University of 00:00:00 [facility] Branch Polio (IPV/OPV) 1997 Completed Universit y of 00:00:00 [facility] Branch IPV 1997 Completed University of 00:00:00 [facility] DTP 1997 Completed University of 00:00:00 [facility] Branch Polio (IPV/OPV) 1997 Completed Universit y of 00:00:00 [facility] Branch IPV 1997 Completed University of 00:00:00 [facility] DTP 1997 Completed University of 00:00:00 [facility] Branch Polio (IPV/OPV) 1997 Completed Universit y of 00:00:00 [facility] DTP 1997 Completed University of 00:00:00 [facility] Branch Polio (IPV/OPV) 1997 Completed Universit y of 00:00:00 [facility] DTP 1997 Completed University of 00:00:00 [facility] Branch Polio (IPV/OPV) 1997 Completed Universit y of 00:00:00 [facility] DTP 1997 Completed University of 00:00:00 [facility] Branch Polio (IPV/OPV) 1997 Completed Universit y of 00:00:00 [facility] Branch Polio (IPV/OPV) 1997 Completed Universit y of 00:00:00 [facility] Branch IPV 1997 Completed University of 00:00:00 [facility] Branch Polio (IPV/OPV) 1997 Completed Universit y of 00:00:00 [place] [facility] IPV 1997 Completed University of 00:00:00 [facility] Polio (IPV/OPV) 1997 Completed Universit y of 00:00:00 [facility] Polio (IPV/OPV) 1997 Completed Universit y of 00:00:00 [facility] Polio (IPV/OPV) 1997 Completed Universit y of 00:00:00 [facility] Polio (IPV/OPV) 1997 Completed Universit y of 00:00:00 [facility] DTP Unknown Completed [facility] [place] D[place] Unknown Completed [facility] DTP Unknown Completed [facility] DTP Unknown Completed [facility] DTP Unknown Completed [facility] HEPATITIS A Unknown Completed [facility] HPV Unknown Completed [facility] HPV Unknown Completed [facility] HPV Unknown Completed [facility] Meningococcal Unknown Completed [facility] MMR Unknown Completed [facility] Polio (IPV/OPV) Unknown Completed [facility] Polio (IPV/OPV) Unknown Completed Universit [facility] Polio (IPV/OPV) Unknown Completed [facility] Polio (IPV/OPV) Unknown Completed [facility] Polio (IPV/OPV) Unknown Completed [facility] Polio (IPV/OPV) Unknown Completed [facility] Polio (IPV/OPV) Unknown Completed [facility] Polio (IPV/OPV) Unknown Completed [facility] Polio (IPV/OPV) Unknown Completed [facility] Polio (IPV/OPV) Unknown Completed [facility] TDAP Unknown Completed [facility] Varicella Unknown Completed University of (varivax)(chicken [place] M edical pox) Branch Varicella Unknown Completed University (varivax)(chicken [place] M edical pox) Branch Meningococcal B, OMV Unknown [facility] Meningococcal B, OMV [facility] Influenza Virus Unknown Completed Universit y of Vaccine Quad .5 mL [facility] 6+ MO Branch (FLUZONE/FLULAVAL/FL UARIX) IPV Unknown Completed [facility] IPV Unknown Completed [facility] IPV Unknown Completed [facility] IPV Unknown Completed [facility] IPV Unknown Completed [facility] IPV Unknown Completed [facility] IPV Unknown Completed [facility] IPV Unknown Completed [facility] IPV Unknown Completed [facility] IPV Unknown Completed [facility] Meningococcal Unknown Completed [facility] (groups A, C, Y and Branc h W-135) conjugate vaccine (MCV4P) Vital Signs Vital Name Observation Time Observation Value Comments Source Systolic blood 2022-10-09 20:38:00 115 mm[Hg] Univer sity of pressure [facility] Diastolic blood 2022-10-09 20:38:00 82 mm[Hg] Unive rsity of [facility] Heart rate 2022-10-09 20:38:00 89 /min Universi ty [facility] Respiratory rate 2022-10-09 20:38:00 18 /min [facility] Body height 2022-10-09 20:38:00 149.9 cm Universi ty [facility] Body weight 2022-10-09 20:38:00 86.183 kg Universi ty [facility] BMI 2022-10-09 20:38:00 38.38 kg/m2 Universi ty [facility] Systolic blood 2022-09-12 21:49:00 126 mm[Hg] Univer sity of [facility] Diastolic blood 2022-09-12 21:49:00 82 mm[Hg] Unive rsity of [facility] Heart rate 2022-09-12 21:49:00 101 /min Universi ty [facility] Body temperature 2022-09-12 21:49:00 36.72 Ann-Marie [facility] Respiratory rate 2022-09-12 21:49:00 18 /min [facility] Body height 2022-09-12 21:49:00 149.9 cm Universi ty [facility] Body weight 2022-09-12 21:49:00 88.542 kg Universi ty [facility] BMI 2022-09-12 21:49:00 39.43 kg/m2 Universi ty [facility] Oxygen saturation in 2022-09-12 21:49:00 98 /min University Arterial blood by [facility] Pulse oximetry Branch Procedures Procedure Date / Time Performed Performing Clinician Sour e GARDASIL 9 (HPV 9V) 2022-10-09 20:51:37 [facility] PAP SMEAR-LIQUID 2022-09-12 22:02:00 [facility] ASSIGNMENT OF BENEFITS 2022-09-12 21:42:32 Doctor Unassigned, No [facility] Name [facility] POCT TEST 2022-09-12 00:00:00 [facility] Plan of Care Planned Activity Planned Date Details Comments Source Future Scheduled 2022-10-10 Influenza Vaccine (#1) [facility] 00:00:00 [code = Influenza Vaccine Sd dical Center (#1)] Future Scheduled 2022-02-[address] [facility] Test 00:00:00 (12+) [code = DEPRESSION [facility] SCREENING (12+)] Future Scheduled 2018 Screening for malignant [facility] Test 00:00:00 neoplasm of cervix Medical C enter (procedure) [code = 655931680] Future Scheduled 2016 DTAP/TDAP/TD VACCINES ([address] [facility] Test 00:00:00 - Tdap) [code = Medical Cent er DTAP/TDAP/TD VACCINES (1 - Tdap)] Future Scheduled 2015-09-09 HEPATITIS C SCREENING [facility] 00:00:00 [code = HEPATITIS C Medical Center SCREENING] Future Scheduled [address] [facility] 00:00:00 virus screening Medical Cent er (procedure) [code = 883826691] Future Scheduled [address] [facility] Test 00:00:00 Counseling and Screening [facility] (12+) [code = Tobacco Cessation Counseling and Screening (12+)] Future Scheduled 1998-03-11 COVID-19 VACCINE (#1) [facility] 00:00:00 [code = COVID-19 VACCINE [facility] (#1)] Encounters Start End Encounter Admission Attending Care Care Encounter Source Date/Time Date/Time Type Type Clinicians Facility Department ID 2022-06-10 Outpatient Morgan, [facility] [id number] Common 07:55:01 Sebas [id number] [facility] 2022-06-09 Outpatient Morgan, [facility] [id number] Common 09:19:03 Sebas [id number] [facility] 2022-05-13 Outpatient Morgan, [facility] [id number] Common 10:32:03 Sebas [id number] [facility] 2022-04-28 Outpatient Morgan, [facility] [id number] Common 13:05:02 Sebas [id number] [facility] 2022-12-09 2022-12-09 Outpatient GC_GCBZW_Ka PRIV PRIV [id number] [facility] 00:00:00 00:00:00 diyala_S [id number] Medic al 2022-12-08 2022-12-08 Outpatient GC_GCBZW_Ka PRIV PRIV [id number] [facility] 00:00:00 00:00:00 diyala_S [id number] Medic al 2022-11-06 2022-11-06 Telephone Lyla [facility] [id number] [facility] 00:00:00 00:00:00 [facility] 2022-10-16 2022-10-16 Outpatient R GULSHAN MILLAN [facility] [id number] [facility] 14:30:00 14:30:00 GULSHAN MILLAN ity [facility] 2022-10-09 2022-10-09 Office Alfredo [facility] 1.2.840.114 [id number] [facility] 15:30:00 15:58:51 Visit Gulshan ingram 350.1.13.10 ity of WOMENS 4.2.7.2.686 [facility] [id number] [place] [address] Branch 2022-10-09 2022-10-09 Outpatient R GULSHAN MILLAN [facility] TMB [id number] [facility] 15:30:00 15:58:51 GULSHAN MILLAN ity of [facility] 2022-10-09 2022-10-09 Outpatient R GULSHAN MILLAN [facility] U TMB [id number] Univers 10:45:00 10:45:00 GULSHAN MILLAN itmumtaz [facility] 2022-09-12 2022-09-12 Outpatient R GULSHAN MILLAN [facility] U [facility] [id number] Univers 16:30:00 17:08:23 GULSHAN MILLAN ity [facility] 2022-09-12 2022-09-12 Office Alfredo [facility] 1.2.840.114 [id number] [facility] 16:30:00 17:08:23 Visit sGulshan MESSI 350.1.13.10 ity [facility] [place].2.7.2.[place] PROF[place] [phone] Sd dical [address] 2022-09-12 2022-09-12 Orders Doctor NISHANT 1.2.840.114 [id number] Univers 00:00:00 00:00:00 Only Unassigned, CASSANDRA 350.1.13.10 [facility] 4.2.7.2.686 Luis M as [id number] [address] 2022-04-22 2022-04-[address] [id number] Phuong 14:00:00 14:00:00 TAWNY woodard 2021-06-28 2021-06-28 Outpatient Le GRAHAM [facility] [id number] Univers 09:00:00 09:00:00 FABIÁN guidry o f [facility] 2021-06-28 2021-06-28 Outpatient Le GRAHAM [facility] [id number] Univers 09:00:00 09:00:00 AMANNDA ity o f [facility] 2021-05-21 2021-05-21 Refulisses Graham [facility] 1.2.840.114 [id number] Univers 00:00:00 00:00:00 Fabián Lujan PROCESSING SPEC 350.1.13.10 ity of [facility] 4.2.7.2.686 Luis M as MATERNAL [phone] [facility] & CHILD [address] [place] [address] 2021-03-15 2021-03-15 [facility]phone [email or web address] [id number] Univers 00:00:00 00:00:00 Fabián R PROCESSING SPEC 350.1.13.10 ity of [facility] 4.2.7.2.686 Luis M as MATERNAL [id number] [facility] & CHILD [address] [place] [address] 2021-03-09 2021-03-09 Outpatient [facility] [id number] Univers 09:30:00 10:55:17 FABIÁN itmumtaz o [facility] 2021-03-09 2021-03-09 [facility] 1.2.840.114 [id number] Univers 09:30:00 10:55:17 Visit Daishasandy Lujan PROCESSING SPEC 350.1.13.10 ity of [facility] 42.7.2.686 Luis M as MATERNAL [id number] [facility] & CHILD [address] [place] [address] 2021-03-09 2021-03-09 Outpatient R [facility] [id number] Univers 09:30:00 10:55:17 [facility] 2021-03-09 2021-03-09 Orders Doctor NISHANT 1.2.840.114 [id number] Univers 00:00:00 00:00:00 Only Unassigned, CASSANDRA 350.1.13.10 ity of [facility]s [facility] 4.2.7.2.686 Luis M as [phone] [address] 2021-03-06 2021-03-06 Telephone [email or web address] 1.2.840.114 [id number] Univers 00:00:00 00:00:00 Hailey Mcghee PROCESSING SPEC 350.1.13.10 ity of [facility] 4.2.7.2.686 Luis M as MATERNAL [phone] [facility] ical & CHILD [address] [place] [address] 2021-01-22 2021-01-22 Patient Doctor NISHANT 1.2.840.114 [id number] Univers 00:00:00 00:00:00 Secure Msg Unassigned, CASSANDRA 350.1.13.10 ity of [place]s [facility] 4.2.7.2.686 Luis M as [phone] [facility] 019 [place] 2020-11-27 2020-11-27 Computer Console Operator 2, Adc Lab [facility] 1.2.840.114 [id number] Univers 15:30:34 15:45:34 Visit Omid Divya Olyphant 350.1.13.10 ity of [place] Miguel [id number] Sd dical nal 353 [facility] 2020-11-27 2020-11-27 Outpatient R [facility] [id number] Univers 15:15:00 15:15:00 ity of [facility] 2020-11-27 2020-11-27 Outpatient R [facility] [id number] Univers 14:00:00 14:00:00 ity of [facility] 2020-11-27 2020-11-27 Telephone Divya [facility] 1.2.840.11 [id number] Univers 00:00:00 00:00:00 Mil 350.1.13.10 it y of [facility] 4[facility]2.7.2.686 [facility] [id number] [address] 2020-11-27 2020-11-27 Telephone Divya Anne [facility] 1.2.840.11 [id number] Univers 00:00:00 00:00:00 Mil 350.1.13.10 it y of [facility] 4.2.7.2.686 [facility] [id number] [address] 2020-05-08 2020-05-08 Outpatient KB PadillaCL ADMI [id number] [facility] 13:00:00 13:00:[address] [place] [address] 2020-05-01 2020-05-01 Patient Benton [facility] 1.2.840.114 [id number] Univers 00:00:00 00:00:00 Outreach Jarad MOURA 350.1.13.10 i ty of [facility] 4.2.7.2.686 [place] [phone] Sd dical [address] [place] [address] 2020-03-29 2020-03-29 Outpatient R DIVYA ANNE [facility] [id number] Univers 11:00:00 11:00:00 ity [facility] 2020-03-22 2020-03-22 Outpatient R DIVYA ANNE [facility] [id number] Univers 15:00:00 15:00:00 ity [facility] 2019-08-03 2019-08-03 Outpatient R AKINSIPE, [facility] [id number] Univers 08:15:00 08:15:00 HAILEY guidry o f [facility] 2019-07-26 2019-07-26 Outpatient R ADUM, [facility] [id number] Univers 10:00:00 10:00:00 DARIO [facility] 2019-07-21 2019-07-21 Telephone [facility] 1.2.840.114 [id number] Univers 00:00:00 00:00:00 Hailey Mcghee PROCESSING SPEC 350.1.13.10 ity [facility] 4.2.7.2.686 Luis M as MATERNAL [id number] Med ical & CHILD [address] [place] [address] 2019-07-20 2019-07-20 Emergency [facility] ERT [id number] Univers 13:51:01 17:56:00 [facility] 2019-07-20 2019-07-20 Emergency [facility] 1.2.840.114 [id number] Univers 13:51:01 17:56:00 [facility] 350.1.13.10 ity [facility] 4.2.7.[address] [facility] [phone] [address] 2019-07-20 2019-07-20 [facility]phone [facility] 1.2.840.114 [id number] Univers 00:00:00 00:00:00 Hailey Mcghee PROCESSING SPEC 350.1.13.10 ity [facility] 4.2.7.2.686 Luis M as MATERNAL [id number] [facility] ical & CHILD [address] [place] [address] 2019-07-20 2019-07-20 Orders Doctor DILLARD 1.2.840.114 [id number] Univers 00:00:00 00:00:00 Only Unassigned, CASSANDRA 350.1.13.10 [facility] 4.2.7.2.686 Luis M as [id number] [address] 2019-07-13 2019-07-13 Outpatient [facility] [id number] Univers 15:00:00 15:00:00 HAILEY guidry o f [facility] 2018-12-31 2018-12-31 Outpatient [facility] [id number] Univers 14:00:00 15:42:30 JOELLEN [facility] Results Test Description Test Time Test Comments Results Result Comments Source POCT TEST 2022-09-12 21:48:00 Test Item Value Reference Range Interpretation Comme nts POCT PREG (test code = 1605) Negative On board controls acceptable with C Line (test code = 3574) Yes POCT PREG LOT # (test code = 3575) POCT PREG TEST DATE (test code = 3576) [facility] [id number] 21:48:00 Test Item Value Reference Range Interpretation Comments POCT PREG (test code = 1605) Negative On board controls acceptable with C Yes Line (test code = 3574) POCT PREG LOT # (test code = 3575) POCT PREG TEST DATE (test code = 3576) [facility]
[2022-12-12] MEDS ORDERED: ACETAMINOPHEN 500 MG TAB ONE (15:51)
[2022-12-12] MEDS ORDERED: NA CHLORIDE 0.9% 1,000 ML ONE (15:51)
[2022-12-12] MEDS ORDERED: ALBUTEROL 2.5 MG/3 ML NEB SOL ONE (15:54)
[2022-12-12] MEDS ORDERED: IPRATROPIUM BROM 0.5MG/2.5ML ONE (15:54)
[2022-12-12] MEDS ORDERED: ASPIRIN 81 MG CHEWABLE TABLET ONE (15:54)
[2022-12-12 16:30] LABS: Absolute Lymphocytes (CBC) 3.2 K/uL (0.7-4.9); Hematocrit 38.2 % (36.0-45.0); Lymphocytes % 36.7 % (15.3-44.8); MCV 84.2 fL (80-100); Platelets 291 thou/uL (152-406); RBC Red Blood Cell Count 4.54 M/uL (3.86-4.86)
[2022-12-12 16:43] LABS: Protime INR 1.04
[2022-12-12 16:51] LABS: Albumin 3.6 g/dL (3.4-5.0); Bilirubin Total 0.5 mg/dL (0.2-1.0); Potassium 3.4 mEq/L (3.5-5.1); Protein, Total 7.7 g/dL (6.4-8.2)
[2022-12-12 17:02] LABS: Specific Gravity 1.005 (1.005-1.030)
[2022-12-12 17:06] LABS: Specific Gravity 1.005 (1.005-1.030); Urine Bacteria None Seen /HPF (<20); Urine Bilirubin NEGATIVE (Negative); Urine Blood 3+ (OVER) (Negative); Urine Clarity Turbid (Clear); Urine Color Colorless (Yellow); Urine Glucose NEGATIVE (Negative); Urine Mucus Slight /HPF (None Seen); Urine Protein NEGATIVE (Negative); Urine Urobilinogen Normal (Normal); Urine pH 6.5 (5.0-7.0)
[2022-12-12] MEDS ORDERED: ONDANSETRON 4 MG/2 ML VIAL ONE (18:36)
[2022-12-12] MEDS ORDERED: MORPHINE 4 MG/ML SYR ONE (18:36)
--- NOTE | 2022-12-12 18:55 | RAD REPORT ---
EXAM DESCRIPTION: CT - Abdomen Pelvis W Contrast - 12/12/2022 6:34 pm CLINICAL HISTORY: Abdominal pain COMPARISON: none. TECHNIQUE: Computed axial tomography of the abdomen pelvis was obtained. 100 cc Isovue-300 was admin istered intravenously. Oral contrast was not requested which limits evaluation of bowel and appendix All CT scans are performed using dose optimization technique as appropriate and may include automated exposure control or mA/KV adjustment according to patient size. FINDINGS: Fatty liver. Mild hepatomegaly. The spleen, pancreas, adrenals and kidneys unremarkable No evidence of diverticulitis. No adnexal mass Appendix not seen Small polyp within the gallbladder suspected Mild bladder distention IMPRESSION: Fatty liver with mild hepatomegaly Mild bladder distention
--- NOTE | 2022-12-12 19:24 | EDPHYS ---
Physician Documentation [facility] Name: Thor Rome Age: 27 yrs Sex: Female : 1995 Arrival Date: 12/12/2022 Time: 14:15 Bed 15 Private MD: Eddie [facility] ED Physician [place] HPI: 12/12 16:17 This 27 yrs old Female presents to ER via Ambulatory with complaints of cp3 Vaginal Bleeding, Abdominal Cramping, Back Pain. 16:17 Patient is a 27-year-old female with a history of PCOS and [place] presents to the ED cp3 secondary to vaginal bleeding that started 2 days ago. Patient endorses that she is currently on fertility treatment and finished progesterone roughly 2 days ago and now with heavy vaginal bleeding in which she has to change her pad every 30 minutes. No fever, chills, nausea, vomiting, diarrhea. Patient endorses pelvic discomfort. 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 - Social history:: Smoking status: Patient denies any tobacco usage or history of. ROS: 16:17 Constitutional: Negative for fever, chills, and weight loss, Eyes: Negative for injury, cp3 pain, redness, and discharge, ENT: Negative for injury, pain, and discharge, Neck: Negative for injury, pain, and swelling, Cardiovascular: Negative for chest pain, palpitations, and edema, Respiratory: Negative for shortness of breath, cough, wheezing, and pleuritic chest pain, MS/Extremity: Negative for injury and deformity, Skin: Negative for injury, rash, and discoloration, Neuro: Negative for headache, weakness, numbness, tingling, and seizure, Psych: Negative for depression, anxiety, suicide ideation, homicidal ideation, and hallucinations, Allergy/Immunology: Negative for hives, rash, and allergies, Endocrine: Negative for neck swelling, polydipsia, polyuria, polyphagia, and marked weight changes, Hematologic/Lymphatic: Negative for swollen nodes, abnormal bleeding, and unusual bruising, 16:17 Abdomen/GI: Positive for abdominal pain, 16:17 : Positive for pelvic pain, vaginal bleeding, Exam: 16:17 Constitutional: This is a well developed, well nourished patient who is awake, alert, cp3 and in no acute distress. Head/Face: Normocephalic, atraumatic. Eyes: Pupils equal round and reactive to light, extra-ocular motions intact. Lids and lashes normal. Conjunctiva and sclera are non-icteric and not injected. Cornea within normal limits. Periorbital areas with no swelling, redness, or edema. ENT: Nares patent. No nasal discharge, no septal abnormalities noted. Tympanic membranes are normal and external auditory canals are clear. Oropharynx with no redness, swelling, or masses, exudates, or evidence of obstruction, uvula midline. Mucous membranes moist. Neck: Trachea midline, no thyromegaly or masses palpated, and no cervical lymphadenopathy. Supple, full range of motion without nuchal rigidity, or vertebral point tenderness. No Meningismus. Chest/axilla: Normal chest wall appearance and motion. Nontender with no deformity. No lesions are appreciated. Cardiovascular: Regular rate and rhythm with a normal S1 and S2. No gallops, murmurs, or rubs. Normal PMI, no JVD. No pulse deficits. Respiratory: Lungs have equal breath sounds bilaterally, clear to auscultation and percussion. No rales, rhonchi or wheezes noted. No increased work of breathing, no retractions or nasal flaring. Back: No spinal tenderness. No costovertebral tenderness. Full range of motion. 16:17 Abdomen/GI: Palpation: moderate abdominal tenderness, in all quadrants, Vital Signs: 14:28 BP 130 / 89; Pulse 96; Resp 18; Temp 98.2(TE); Pulse Ox 100% on R/A; Weight 89.36 kg; cm10 Height 4 ft. 11 in. ; Pain 8/10; 16:00 BP 130 / 83; Pulse 65; Resp 16; Pulse Ox 100% on R/A; db 17:00 BP 122 / 70; Pulse 81; Resp 16; Pulse Ox 100% on R/A; db 18:10 BP 138 / 78; Pulse 93; Resp 16; Pulse Ox 100% on R/A; db 19:00 BP 141 / 87; Pulse 88; Resp 16; Pulse Ox 99% on R/A; km8 14:28 Body Mass Index 39.79 (89.36 kg, 149.86 cm) cm10 14:28 Pain Scale: Adult cm10 MDM: 14:19 Patient medically screened. cp3 19:18 Differential diagnosis: menorrhea, nonspecific abdominal pain, ovarian cyst, uterine cp3 fibroids, urinary tract infection, Differential diagnosis includes: Dysfunctional uterine bleeding, symptomatic anemia, ovarian cyst. Data reviewed: vital signs, nurses notes, lab test result(s), radiologic studies. Consideration of Admission/Observation Escalation of care including admission/observation considered. Patient declined inpatient admission. Bleeding has improved. I considered the following discharge prescriptions or medication management in the emergency department Medications were administered in the Emergency Department. See MAR. Historians other than the Patient: Patient's at bedside. ED course: Patient with slow bleeding. Discussed plan of care which is to DC with prescription for Provera until patient can be seen by her fertility specialist. Patient agreed that bleeding has slowed over the last 4 hours. Patient will hold off on Provera unless bleeding more than 1 pad per hour and will follow-up with her fertility specialist. 12/12 15:04 Order name: CBC with Diff; Complete Time: 17:04 cp3 12/12 15:04 Order name: Comprehensive Metabolic Panel; Complete Time: 17:04 cp3 12/12 15:04 Order name: Urinalysis W/Microscopic; Complete Time: 17:16 cp3 12/12 15:04 Order name: Test, Urine; Complete Time: 17:16 cp3 12/12 15:04 Order name: PT-INR; Complete Time: 17:04 cp3 12/12 17:31 Order name: CT Abd/Pelvis - IV Contrast Only; Complete Time: 19:04 cp3 12/12 15:04 Order name: Saline Lock; Complete Time: 16:45 cp3 Administered Medications: 15:50 Drug: Acetaminophen PO 1000 mg PO once Route: PO; db 18:18 Follow up: Response: No adverse reaction db 16:04 Drug: NS 0.9% IV 1000 ml IV at 1 bolus Per protocol; 1000 mL bolus Route: IV; Rate: 1 db bolus; Site: left antecubital; 19:06 Follow up: Response: No adverse reaction; IV Status: Completed infusion; IV Intake: db 1000ml 17:17 CANCELLED (wrong ordere): racepinephrine0.5 ml Inhalation once cp3 18:22 Drug: morphine IVP or IV 4 mg IVP once over 4 mins Route: IVP; Infused Over: 4 mins; db Site: left antecubital; 19:06 Follow up: Response: No adverse reaction db 18:22 Drug: Ondansetron IVP 4 mg IVP once; over 2 minutes Route: IVP; Site: left antecubital; db 19:06 Follow up: Response: No adverse reaction db 19:32 CANCELLED (not in pyxiss): Provera 10 mg PO once km8 Disposition Summary: 12/12/22 19:23 Discharge Ordered Condition: Stable cp3 Diagnosis - Pelvic and perineal pain cp3 - Dysfunctional uterine bleeding cp3 - History of PCOS cp3 - History of infertility cp3 Followup: cp3 - With: Kajal Gaviria MD - When: - Reason: Recheck today's complaints Discharge Instructions: - Discharge Summary Sheet cp3 - Pelvic Pain, Female cp3 - Dysfunctional Uterine Bleeding cp3 Forms: - Medication Reconciliation Form cp3 - Thank You Letter cp3 - Antibiotic Education cp3 - Prescription Opioid Use cp3 - Patient Portal Instructions cp3 - Leadership Thank You Letter cp3 Prescriptions: - Provera 10 mg Oral tablet - take 1 tablet ORAL route daily for 10 days; 10 tablet; Refills: 0, Product cp3 Selection Permitted Signatures: Dispatcher [employer] Monet Lang MD MD cp3 Danyell Shaikh RN RN db Karen Grant RN RN cm10 Pebbles Ware RN km8 Corrections: (The following items were deleted from the chart) 17:17 17:16 Racepinephrine Inhalation 0.5 ml Inhalation once ordered. cp3 cp3 19:32 19:10 Provera 10 mg PO once ordered. cp3 km8
--- NOTE | 2022-12-12 19:24 | ER ---
Nurse's Notes [facility] Name: Thor Rome Age: 27 yrs Sex: Female : 1995 Arrival Date: 12/12/2022 Time: 14:15 Bed 15 Private MD: Sebas Morgan Diagnosis: Pelvic and perineal pain;Dysfunctional uterine bleeding;History of PCOS;History of infertility Presentation: 12/12 14:28 Chief complaint: Patient states: Completed 10 days of Provera 4 days ago and last night cm10 started having increasing vaginal bleeding. Pt states that she has gone through 5 pads since this morning. Pt states that she is passing clots bigger than a 1 quarter. Coronavirus screen: Vaccine status: Patient reports being unvaccinated. Client denies travel out of the [place] in the last 14 days. Ebola Screen: Patient denies travel to an Ebola-affected area in the 21 days before illness onset. No symptoms or risks identified at this time. Initial Sepsis Screen: Does the patient meet any 2 criteria? No. Patient's initial sepsis screen is negative. Does the patient have a suspected source of infection? No. Patient's initial sepsis screen is negative. Risk Assessment: Do you want to hurt yourself or someone else? Patient reports no desire to harm self or others. Onset of symptoms was December 12, 2022. 14:28 Method Of Arrival: Ambulatory [facility] 14:28 Acuity: BETITO 3 cm10 CONTINUITY COORDINATOR: 19:53 LMP 12/10/2022, unknown km8 Historical: - Allergies: 14:28 No Known Allergies; cm10 - PMHx: 14:28 Anxiety; PCOS; cm10 - Immunization history:: Adult Immunizations unknown. - Social history:: Smoking status: Patient denies any tobacco usage or history of. Screenin:30 [facility] ED Fall Risk Assessment (Adult) History of falling in the last 3 months, db including since admission No falls in past 3 months (0 pts) Confusion or Disorientation No (0 pts) Intoxicated or Sedated No (0 pts) Impaired Gait No (0 pts) Mobility Assist Device Used No (0 pt) Altered Elimination No (0 pt) Score/Fall Risk Level 0 - 2 = Low Risk Oriented to surroundings, Maintained a safe environment. Abuse screen: Denies threats or abuse. Denies injuries from another. Nutritional screening: No deficits noted. Tuberculosis screening: No symptoms or risk factors identified. Assessment: 16:30 Reassessment: Patient appears in no apparent distress at this time. Patient and/or db family updated on plan of care and expected duration. Pain level reassessed. Patient is alert, oriented x 3, equal unlabored respirations, skin warm/dry/pink. Pain: Complains of pain in pelvis. Neuro: Level of Consciousness is awake, alert, obeys commands, Oriented to person, place, time, situation. Respiratory: Airway is patent Respiratory effort is even, unlabored, Respiratory pattern is regular, symmetrical. : REPORTS VAGINAL BLEEDING Reports vaginal bleeding that is heavy flow. 17:30 Reassessment: Patient appears in no apparent distress at this time. Patient and/or db family updated on plan of care and expected duration. Pain level reassessed. Patient is alert, oriented x 3, equal unlabored respirations, skin warm/dry/pink. 18:24 Reassessment: PT TO CT. db 18:51 Reassessment: Patient appears in no apparent distress at this time. Patient and/or db family updated on plan of care and expected duration. Pain level reassessed. Patient is alert, oriented x 3, equal unlabored respirations, skin warm/dry/pink. PATIENT SPOUSE IS AT BEDSIDE. PATIENT AMBULATORY TO RESTROOM Patient states feeling better. Patient states symptoms have improved. General: Appears in no apparent distress. comfortable, Behavior is calm, cooperative. 19:12 Reassessment: Patient appears in no apparent distress at this time. No changes from km8 previously documented assessment. Patient and/or family updated on plan of care and expected duration. Pain level reassessed. Patient is alert, oriented x 3, equal unlabored respirations, skin warm/dry/pink. pt given water; denies pain at this time. Vital Signs: 14:28 BP 130 / 89; Pulse 96; Resp 18; Temp 98.2(TE); Pulse Ox 100% on R/A; Weight 89.36 kg; cm10 Height 4 ft. 11 in. ; Pain 8/10; 16:00 BP 130 / 83; Pulse 65; Resp 16; Pulse Ox 100% on R/A; db 17:00 BP 122 / 70; Pulse 81; Resp 16; Pulse Ox 100% on R/A; db 18:10 BP 138 / 78; Pulse 93; Resp 16; Pulse Ox 100% on R/A; db 19:00 BP 141 / 87; Pulse 88; Resp 16; Pulse Ox 99% on R/A; km8 14:28 Body Mass Index 39.79 (89.36 kg, 149.86 cm) cm10 14:28 Pain Scale: Adult cm10 ED Course: 14:18 Patient arrived in ED. mr 14:18 Sebas Morgan DO is Private Physician. mr 14:18 Monet Chase MD is Attending Physician. cp3 14:30 Triage completed. cm10 14:30 Arm band placed on Patient placed in an exam room, on a stretcher. cm10 15:03 Danyell Shaikh, RN is Primary Nurse. db 16:20 Inserted saline lock: 22 gauge in left antecubital area, using aseptic technique. Blood db collected. 18:16 Radiology exam delayed due to patient getting meds at this time. nj 18:[address] via wheelchair. nj 18:36 CT Abd/Pelvis - IV Contrast Only In Process Unspecified. EDMS 18:38 Patient has correct armband on for positive identification. Placed in gown. Bed in low db position. Call light in reach. Pulse ox on. NIBP on. Warm blanket given. 19:11 Primary Nurse role handed off by Danyell Shaikh, MERCEDES as6 19:12 Pebbles Ware, MERCEDES is Primary Nurse. km8 19:22 Kajal Gaviria MD is Referral Physician. cp3 19:49 No provider procedures requiring assistance completed. km8 19:53 Provided Education on: d/c teaching. km8 19:53 IV discontinued, intact, bleeding controlled, No redness/swelling at site. Pressure km8 dressing applied. Administered Medications: 15:50 Drug: Acetaminophen PO 1000 mg PO once Route: PO; db 18:18 Follow up: Response: No adverse reaction db 16:04 Drug: NS 0.9% IV 1000 ml IV at 1 bolus Per protocol; 1000 mL bolus Route: IV; Rate: 1 db bolus; Site: left antecubital; 19:06 Follow up: Response: No adverse reaction; IV Status: Completed infusion; IV Intake: db 1000ml 17:17 CANCELLED (wrong ordere): racepinephrine0.5 ml Inhalation once cp3 18:22 Drug: morphine IVP or IV 4 mg IVP once over 4 mins Route: IVP; Infused Over: 4 mins; db Site: left antecubital; 19:06 Follow up: Response: No adverse reaction db 18:22 Drug: Ondansetron IVP 4 mg IVP once; over 2 minutes Route: IVP; Site: left antecubital; db 19:06 Follow up: Response: No adverse reaction db 19:32 CANCELLED (not in pyxiss): Provera 10 mg PO once km8 Medication: 17:30 VIS not applicable for this client. db Intake: 19:06 IV: 1000ml; Total: 1000ml. db Outcome: 19:23 Discharge ordered by MD. cp3 19:52 Discharged to home ambulatory, with significant other, km8 19:52 Condition: good 19:52 Discharge instructions given to patient, significant other, Instructed on discharge instructions, follow up and referral plans. medication usage, Demonstrated understanding of instructions, follow-up care, medications, Prescriptions given X 1, 19:54 Patient left the ED. km8 Signatures: Dispatcher [employer] EDMonet Mccallum MD MD cp3 Nahomy Pro, Reg Reg mr Steve, Demond Cr, MERCEDES RN as6 Danyell Shaikh, MERCEDES RN db Karen Grant, MERCEDES LONG cm10 Pebbles Ware RN RN km8
[2022-12-12 20:17] VITALS: TEMP 98.2
[2022-12-12 20:22] VITALS: BP 141/87; O2SAT 99
== END 2022-12-12 19:54 | disposition home or self-care (01) ==
LOC: ER 14:15
DX: R10.2 Pelvic and perineal pain (principal); N93.8 Other specified abnormal uterine and vaginal bleeding; E28.2 Polycystic ovarian syndrome; N97.9 Female infertility, unspecified
CPT/HCPCS: 96361; 85025; 81001; 36415; 81025; 85610; 80053; 74177; 96375; 96374; 99285; Q9967; J7613; J7644; J2405; J7030